=== PATIENT | female | born 1960 | race Caucasian/White ===

== ENCOUNTER 2016-09-08 06:54 | Day surgery (SDC) | payer BC ==
[2016-09-08] MEDS ORDERED: DIPHENHYDRAMINE 25 MG in SODIUM CHLORIDE 50 ML IVPB ONE (08:00)
[2016-09-08] MEDS ORDERED: ACETAMINOPHEN 325 MG TABLET (FP) PO ONE (08:00)
[2016-09-08] MEDS ORDERED: SODIUM CHLORIDE 250 ML IV ONE (08:00)
[2016-09-08] MEDS ORDERED: RITUXIMAB IVPB ONE (08:45)
[2016-09-08] MEDS ORDERED: SODIUM CHLORIDE IVPB ONE (08:45)
[2016-09-08 09:03] LABS: BASOPHIL 1.2 % (0-2.0); EOSINOPHIL 4.6 % (0-4.5); MCH 29.5 pg (25.7-33.7); MCHC 33.4 g/dl (32.0-36.0); MEAN CELL VOLUME 88.2 fl (80-96); MEAN PLT VOLUME 9.9 fl (7.5-11.1); NEUTROPHILS 61.4 % (42.8-82.8); PLATELET COUNT 163 K/MM3 (134-434); RDW 13.4 % (11.6-15.6); WHITE BLOOD COUNT 3.9 K/mm3 (4.0-10.0)
[2016-09-08 12:07] VITALS: TEMP 97.5
[2016-09-08 16:10] VITALS: BP 119/86; PULSE 62
== END 2016-09-08 15:35 | disposition home or self-care (01) ==
LOC: JONCCHEMO 06:54 → J7W 10:43 → JONCCHEMO 15:35
PROVIDERS: ATTEND Internal Medicine Hematology & Oncology
DX: Z51.11 Encounter for antineoplastic chemotherapy (principal); C85.90 Non-Hodgkin lymphoma, unspecified, unspecified site
CPT/HCPCS: 36415; 85025; 96361; 96367; 96413; 96415; J9310

== ENCOUNTER 2016-11-10 07:20 | Day surgery (SDC) | payer BC ==
[2016-11-10 09:06] LABS: BASOPHIL 0.8 % (0-2.0); EOSINOPHIL 5.9 % (0-4.5); MCH 29.8 pg (25.7-33.7); MCHC 33.6 g/dl (32.0-36.0); MEAN CELL VOLUME 88.8 fl (80-96); MEAN PLT VOLUME 9.5 fl (7.5-11.1); PLATELET COUNT 151 K/MM3 (134-434); RDW 13.6 % (11.6-15.6)
[2016-11-10 09:37] LABS: ALBUMIN 3.5 g/dl (3.4-5.0); ALK PHOS 90 U/L (45-117); ANION GAP 7 (8-16); BILIRUBIN,TOTAL 0.3 mg/dL (0.2-1.0); CALCIUM 8.6 mg/dL (8.5-10.1); CO2 27 mmol/L (21-32); CREATININE 0.5 mg/dL (0.55-1.02); GLUCOSE,RANDOM 94 mg/dL (74-106); LDH 214 U/L (84-246); SGOT/AST 24 U/L (15-37); SGPT/ALT 28 U/L (12-78); TOT PROT 6.3 g/dl (6.4-8.2)
[2016-11-10] MEDS ORDERED: SODIUM CHLORIDE 250 ML IV ONE (10:00)
[2016-11-10] MEDS ORDERED: ACETAMINOPHEN 325 MG TABLET (FP) PO ONE (10:00)
[2016-11-10] MEDS ORDERED: DIPHENHYDRAMINE 25 MG in SODIUM CHLORIDE 50 ML IVPB ONE (10:00)
[2016-11-10] MEDS ORDERED: RITUXIMAB IVPB ONE (10:45)
[2016-11-10] MEDS ORDERED: SODIUM CHLORIDE IVPB ONE (10:45)
[2016-11-10 10:50] LABS: URIC ACID 3.6 mg/dL (2.6-7.2)
[2016-11-10 15:50] VITALS: BP 131/76; PULSE 58; TEMP 98.4
== END 2016-11-10 14:15 | disposition home or self-care (01) ==
LOC: JONCCHEMO 07:20 → J7W 09:41 → JONCCHEMO 14:15
PROVIDERS: ATTEND Internal Medicine Hematology & Oncology
PROC: 3E03305 Introduction of Other Antineoplastic into Peripheral Vein, Percutaneous Approach (ICD-10-PCS; principal; 2016-11-10)
PROC: 3E033GC Introduction of Other Therapeutic Substance into Peripheral Vein, Percutaneous Approach (ICD-10-PCS; 2016-11-10)
PROC: 3E0337Z Introduction of Electrolytic and Water Balance Substance into Peripheral Vein, Percutaneous Approach (ICD-10-PCS; 2016-11-10)
DX: Z51.11 Encounter for antineoplastic chemotherapy (principal); C85.99 Non-Hodgkin lymphoma, unspecified, extranodal and solid organ sites
CPT/HCPCS: 96361; 96375; 96413; 96415; J9310; 36415; 80053; 82784; 83615; 84550; 85025; 96360; 96367

== ENCOUNTER 2017-01-05 07:28 | Day surgery (SDC) | payer BC ==
[2017-01-05] MEDS ORDERED: SODIUM CHLORIDE 250 ML IV ONE (08:00)
[2017-01-05] MEDS ORDERED: ACETAMINOPHEN 325 MG TABLET (FP) PO ONE (08:30)
[2017-01-05] MEDS ORDERED: DIPHENHYDRAMINE 25 MG in SODIUM CHLORIDE 50 ML IVPB ONE (08:30)
[2017-01-05] MEDS ORDERED: SODIUM CHLORIDE IVPB ONE (09:00)
[2017-01-05] MEDS ORDERED: RITUXIMAB IVPB ONE (09:00)
[2017-01-05 09:08] LABS: EOSINOPHIL 3.8 % (0-4.5); MCHC 33.7 g/dl (32.0-36.0); MEAN PLT VOLUME 10.2 fl (7.5-11.1); NEUTROPHILS 63.7 % (42.8-82.8); PLATELET COUNT 159 K/MM3 (134-434); RDW 12.9 % (11.6-15.6); WHITE BLOOD COUNT 3.8 K/mm3 (4.0-10.0)
[2017-01-05 09:36] LABS: ALBUMIN 3.8 g/dl (3.4-5.0); ALK PHOS 104 U/L (45-117); ANION GAP 4 (8-16); BILIRUBIN,TOTAL 0.2 mg/dL (0.2-1.0); CALCIUM 8.7 mg/dL (8.5-10.1); CO2 29 mmol/L (21-32); CREATININE 0.5 mg/dL (0.55-1.02); GLUCOSE,RANDOM 92 mg/dL (74-106); MAGNESIUM 2.3 mg/dL (1.8-2.4); SGOT/AST 15 U/L (15-37); SGPT/ALT 26 U/L (12-78); TOT PROT 6.8 g/dl (6.4-8.2)
[2017-01-05 09:41] LABS: BILIRUBIN,DIRECT < 0.1 mg/dL (0.0-0.2)
[2017-01-05 16:40] VITALS: BP 114/62; PULSE 54; TEMP 97.9
== END 2017-01-05 14:30 | disposition home or self-care (01) ==
LOC: JONCCHEMO 07:28 → J7W 09:50 → JONCCHEMO 14:30
PROVIDERS: ATTEND Internal Medicine Hematology & Oncology
DX: Z51.11 Encounter for antineoplastic chemotherapy (principal); C85.99 Non-Hodgkin lymphoma, unspecified, extranodal and solid organ sites
CPT/HCPCS: 36415; 80053; 80076; 83735; 85025; 96361; 96375; 96413; 96415; J9310

== ENCOUNTER 2017-03-02 07:19 | Day surgery (SDC) | payer BC ==
[2017-03-02] MEDS ORDERED: SODIUM CHLORIDE 250 ML IV ONE (08:00)
[2017-03-02] MEDS ORDERED: DIPHENHYDRAMINE 25 MG in SODIUM CHLORIDE 50 ML IVPB ONE (08:30)
[2017-03-02] MEDS ORDERED: ACETAMINOPHEN 325 MG TABLET (FP) PO ONE (08:30)
[2017-03-02] MEDS ORDERED: RITUXIMAB IVPB ONE (09:00)
[2017-03-02] MEDS ORDERED: SODIUM CHLORIDE IVPB ONE (09:00)
[2017-03-02 09:09] LABS: BASOPHIL 0.6 % (0-2.0); EOSINOPHIL 3.8 % (0-4.5); MCH 30.3 pg (25.7-33.7); MCHC 33.5 g/dl (32.0-36.0); MEAN CELL VOLUME 90.3 fl (80-96); MEAN PLT VOLUME 9.3 fl (7.5-11.1); NEUTROPHILS 58.6 % (42.8-82.8); PLATELET COUNT 178 K/MM3 (134-434); RDW 12.2 % (11.6-15.6); WHITE BLOOD COUNT 3.2 K/mm3 (4.0-10.0)
[2017-03-02 09:54] LABS: ALBUMIN 3.6 g/dl (3.4-5.0); ANION GAP 5 (8-16); BILIRUBIN,DIRECT < 0.1 mg/dL (0.0-0.2); CALCIUM 9.1 mg/dL (8.5-10.1); CO2 29 mmol/L (21-32); CREATININE 0.5 mg/dL (0.55-1.02); GLUCOSE,RANDOM 93 mg/dL (74-106); LDH 211 U/L (84-246); MAGNESIUM 2.1 mg/dL (1.8-2.4); SGOT/AST 13 U/L (15-37); SGPT/ALT 23 U/L (12-78); TOT PROT 6.4 g/dl (6.4-8.2); URIC ACID 3.7 mg/dL (2.6-7.2)
[2017-03-02 09:55] LABS: ALK PHOS 101 U/L (45-117); BILIRUBIN,TOTAL 0.3 mg/dL (0.2-1.0)
[2017-03-02 15:29] VITALS: BP 133/92; PULSE 80; TEMP 97.9
[2017-03-03 08:08] LABS: IGG IMMUNOGLOBULIN 776 mg/dL (700-1600)
[2017-03-04 00:10] LABS: HBeAG Negative (Negative); HEP B SURFACE AB Reactive (.); HEP BE AB Negative (Negative)
== END 2017-03-02 14:35 | disposition home or self-care (01) ==
LOC: JONCCHEMO 07:19 → J7W 09:41 → JONCCHEMO 14:35
PROVIDERS: ATTEND Internal Medicine Hematology & Oncology
DX: Z51.11 Encounter for antineoplastic chemotherapy (principal); C85.99 Non-Hodgkin lymphoma, unspecified, extranodal and solid organ sites
CPT/HCPCS: 36415; 80053; 80076; 82232; 82784; 83615; 83735; 84550; 85025; 85651; 86704; 86705; 86706; 86707; 87340; 87350; 87517; 96361; 96375; 96413; 96415; J9310

== ENCOUNTER 2017-05-04 07:25 | Day surgery (SDC) | payer BC ==
[2017-05-04] MEDS ORDERED: SODIUM CHLORIDE 250 ML IV ONE (08:00)
[2017-05-04] MEDS ORDERED: DIPHENHYDRAMINE 25 MG in SODIUM CHLORIDE 50 ML IVPB ONE (08:30)
[2017-05-04] MEDS ORDERED: ACETAMINOPHEN 325 MG TABLET (FP) PO ONE (08:30)
[2017-05-04] MEDS ORDERED: RITUXIMAB IVPB ONE (09:00)
[2017-05-04] MEDS ORDERED: SODIUM CHLORIDE IVPB ONE (09:00)
[2017-05-04 10:32] LABS: BASOPHIL 0.9 % (0-2.0); MCH 30.5 pg (25.7-33.7); MCHC 33.8 g/dl (32.0-36.0); MEAN CELL VOLUME 90.3 fl (80-96); MEAN PLT VOLUME 9.5 fl (7.5-11.1); NEUTROPHILS 60.3 % (42.8-82.8); PLATELET COUNT 188 K/MM3 (134-434); RDW 12.8 % (11.6-15.6); WHITE BLOOD COUNT 3.9 K/mm3 (4.0-10.0)
[2017-05-04 11:03] LABS: ALBUMIN 3.8 g/dl (3.4-5.0); ALK PHOS 132 U/L (45-117); ANION GAP 5 (8-16); BILIRUBIN,DIRECT < 0.2 mg/dL (0.0-0.2); BILIRUBIN,TOTAL 0.2 mg/dL (0.2-1.0); CALCIUM 8.6 mg/dL (8.5-10.1); CO2 28 mmol/L (21-32); CREATININE 0.5 mg/dL (0.55-1.02); GLUCOSE,RANDOM 90 mg/dL (74-106); MAGNESIUM 2.2 mg/dL (1.8-2.4); SGOT/AST 15 U/L (15-37); SGPT/ALT 26 U/L (12-78); TOT PROT 6.8 g/dl (6.4-8.2)
[2017-05-04 16:22] VITALS: BP 131/87; PULSE 55; TEMP 98.2
== END 2017-05-04 16:30 | disposition home or self-care (01) ==
LOC: JONCCHEMO 07:25 → J7W 11:00 → JONCCHEMO 16:30
PROVIDERS: ATTEND Internal Medicine Hematology & Oncology
DX: Z51.11 Encounter for antineoplastic chemotherapy (principal); C85.99 Non-Hodgkin lymphoma, unspecified, extranodal and solid organ sites
CPT/HCPCS: 36415; 80053; 80076; 83735; 85025; 96367; 96375; 96413; 96415; J9310

== ENCOUNTER 2017-10-05 07:44 | Day surgery (SDC) | payer BC ==
[2017-10-05] MEDS ORDERED: SODIUM CHLORIDE 250 ML IV ONE (10:00)
[2017-10-05 10:01] LABS: BASO % 0.7 % (0-2.0); EOS % 2.1 % (0-4.5); HEMATOCRIT 36.4 % (32.4-45.2); HEMOGLOBIN 12.4 GM/dL (10.7-15.3); LYMPH % 19.1 % (8-40); MCH 30.8 pg (25.7-33.7); MCHC 34.1 g/dl (32.0-36.0); MEAN CELL VOLUME 90.3 fl (80-96); MEAN PLT VOLUME 9.5 fl (7.5-11.1); MONO % 9.3 % (3.8-10.2); NEUT % 68.8 % (42.8-82.8); PLATELET COUNT 175 K/MM3 (134-434); RBC 4.04 M/mm3 (3.60-5.2); WHITE BLOOD COUNT 3.5 K/mm3 (4.0-10.0)
[2017-10-05] MEDS ORDERED: ZOLEDRONIC ACID/MAN/WATER 5 MG/100 ML INFUS..BTL IVPB ONE (10:30)
[2017-10-05 10:51] LABS: ALBUMIN 3.8 g/dl (3.4-5.0); ALK PHOS 92 U/L (45-117); ANION GAP 4 (8-16); BILIRUBIN,DIRECT < 0.2 mg/dL (0.0-0.2); BILIRUBIN,TOTAL 0.4 mg/dL (0.2-1.0); BLOOD UREA NITROGEN 9 mg/dL (7-18); CALCIUM 8.6 mg/dL (8.5-10.1); CHLORIDE 110 mmol/L (98-107); CO2 29 mmol/L (21-32); CREATININE 0.5 mg/dL (0.55-1.02); GLUCOSE,RANDOM 88 mg/dL (74-106); LDH 225 U/L (84-246); MAGNESIUM 2.4 mg/dL (1.8-2.4); SGOT/AST 14 U/L (15-37); SGPT/ALT 19 U/L (12-78); SODIUM 143 mmol/L (136-145); TOT PROT 6.8 g/dl (6.4-8.2)
[2017-10-05 17:10] VITALS: BP 132/75; PULSE 58; TEMP 98.2
== END 2017-10-05 13:15 | disposition home or self-care (01) ==
LOC: JONCCHEMO 07:44 → J7W 10:50 → JONCCHEMO 13:15
PROVIDERS: ATTEND Internal Medicine Hematology & Oncology
DX: M81.0 Age-related osteoporosis without current pathological fracture (principal)
CPT/HCPCS: 36415; 72100-TC-FY; 80053; 80076; 82784; 82977; 83615; 83735; 85025; 85651; 86704; 86705; 87522; 96365; 96413; J3489

== ENCOUNTER 2018-10-03 07:12 | Day surgery (SDC) | payer BC ==
[2018-10-03] MEDS ORDERED: SODIUM CHLORIDE 250 ML IV ONE (09:00)
[2018-10-03] MEDS ORDERED: ZOLEDRONIC ACID/MAN/WATER 5 MG/100 ML INFUS..BTL IVPB ONE (09:30)
[2018-10-03 11:01] VITALS: BP 152/90; TEMP 98.2
[2018-10-03 11:02] VITALS: PULSE 57
== END 2018-10-03 11:30 | disposition home or self-care (01) ==
LOC: JONCCHEMO 07:12 → J7W 09:00 → JONCCHEMO 11:30
PROVIDERS: ATTEND Internal Medicine Hematology & Oncology
PROC: 3E033GC Introduction of Other Therapeutic Substance into Peripheral Vein, Percutaneous Approach (ICD-10-PCS; principal; 2018-10-03)
DX: M81.0 Age-related osteoporosis without current pathological fracture (principal)
CPT/HCPCS: 96365; 96417; J3489

== ENCOUNTER 2019-01-11 04:49 | Day surgery (SDC) | payer BC ==
[2019-01-08 11:28] VITALS: BMI 28.0
[2019-01-11] MEDS ORDERED: ceFAZolin SODIUM 1 GM VIAL ONE (09:13)
[2019-01-11] MEDS ORDERED: LIDOCAINE HCL/PF 2% SDV 5ML VIAL ONE (09:13)
[2019-01-11] MEDS ORDERED: MIDAZOLAM HCL 2 MG/2 ML SINGLE DOSE VIAL ONE (09:14)
[2019-01-11] MEDS ORDERED: PROPOFOL 20 ML ONE ×2 (09:14)
[2019-01-11] MEDS ORDERED: LIDOCAINE 1%-EPI 1:100,000 30 ML MDV IJ ONE (09:35)
[2019-01-11] MEDS ORDERED: ceFAZolin SODIUM 1 GM VIAL IVPB ONE (09:42)
[2019-01-11] MEDS ORDERED: DEXAMETHASONE SOD PHOSPHATE 4 MG/1 ML VIAL ONE (09:57)
[2019-01-11] MEDS ORDERED: LIDOCAINE 1%/EPI 1:100000 (20 ML MULTI DOSE VIAL) IJ ONE (10:03)
[2019-01-11] MEDS ORDERED: BUPIVACAINE HCL/PF 0.5% (5 MG/ML) 30 ML VIAL IJ ONE (10:03)
[2019-01-11] MEDS ORDERED: MICROFIBRILLAR COLLAGEN 1 GM EACH ONE (10:18)
[2019-01-11] MEDS ORDERED: MICROFIBRILLAR COLLAGEN 1 GM EACH TP ONE (10:24)
[2019-01-11] MEDS ORDERED: ONDANSETRON 4 MG/2 ML VIAL IVPUSH PRN (10:42)
[2019-01-11] MEDS ORDERED: oxyCODONE HCL 5 MG TABLET PO PRN (10:42)
[2019-01-11] MEDS ORDERED: IBUPROFEN 800 MG/8 ML IJ IVPB PRN (10:42)
[2019-01-11] MEDS ORDERED: LACTATED RINGERS SOLUTION 1,000 ML IV SCH ×2 (10:45→11:00)
[2019-01-11] MEDS ORDERED: ONDANSETRON 4 MG/2 ML VIAL ONE (10:59)
--- NOTE | 2019-01-11 12:52 | OP ---
DATE OF OPERATION: 01/11/2019 SURGICAL ATTENDING: Evan Monte MD PREOPERATIVE DIAGNOSIS: Lymphoma. POSTOPERATIVE DIAGNOSIS: Lymphoma. ANESTHESIA: General, LMA. PROCEDURE: 1. Left cervical lymph node biopsy. 2. Neck ultrasound. 3. Left cervical scar excision. DESCRIPTION OF PROCEDURE: The patient was taken into the operating room, placed in a supine position. General anesthesia was induced. Shoulder roll was placed. The arms were tucked. All pressure points were checked and protected. Neck ultrasound was performed showing a large left supraclavicular neck mass with scattered lymphadenopathy adjacent. The neck was then prepped and draped in the usual sterile fashion. Local anesthesia was injected and the previous left cervical scar was excised and sent to Pathology. The incision was carried down through the platysma and subplatysmal flaps were raised superiorly and inferiorly. The sternocleidomastoid muscle was dissected and the space between the anterior and posterior bellies was opened. The mass was readily identified, uncovered and an incisional biopsy was taken. This was sent to Pathology fresh for lymphoma studies. Hemostasis was achieved with electrocautery. Avitene was placed. The wound was then closed in 3 layers. Dermabond was placed. The patient was then awakened, extubated and taken to recovery in stable condition. Dr. Monte, the attending surgeon, was present throughout the entire procedure. EVAN MONTE M.D. [id number]
[2019-01-11 16:15] VITALS: BP 140/80; PULSE 57; TEMP 98.1
--- NOTE | 2019-01-16 16:52 | PATH ---
Surgical Pathology Report Patient Name: THAI MCKINNEY [facility]. Rec. #: [id number] /Age/Gender: 1960 (Age: 58) / F Account: [id number] Location: [facility] SURGICAL Taken: 01/11/2019 Received: 01/11/2019 Reported: 01/16/2019 Physicians: Danny Swenson M.D. Jn Rod M.D. Specimen(s) Received A: LEFT CERVICAL SCAR B: LEFT CERVICAL LYMPH NODE BIOPSY (FRESH) Clinical History Left thyroid nodule Final Diagnosis A. LEFT CERVICAL SCAR, EXCISION: PORTION OF SKIN WITH SCAR. B. LEFT CERVICAL LYMPH NODE BIOPSY (FRESH): The specimen was sent to [place], [place] for hematopathology consultation. Surgical Pathology Report performed and interpreted at [place], [place] ([id number]) shows the following: FINAL DIAGNOSIS: LEFT CERVICAL LYMPH NODE, EXCISIONAL BIOPSY ([id number]) FOLLICULAR LYMPHOMA, FOLLICULAR PATTERN, HIGH GRADE (GRADE 3B). Microscopic Description: The specimen consists of fragments of lymph node with nodular/follicular proliferation of polymorphous lymphocytes; medium-sized to large neoplastic lymphoid cells with nuclear irregularities, vesicular chromatin and small nucleoli predominate. Numerous mitotic figures are easily identifiable. Immunostains demonstrate B-cell origin with co-expression of CD20, PAX-5, CD10, BCL-6, and HGAL; BCL-2 is dimly focally positive.The proliferative rate is 30-40% overall. Immunostains performed: CD20...B-cells positive PAX-5..B-cells positive CD10..Positive CD3..T-cells positive BCL-2...T-cells positive; B-cells dimly focally positive HGAL...Positive BCL-1..Negative BCL-6...Positive CRISTINA..Negative AE1/AE3..Negative CD23..Follicular dendritic cells positive Ki67..Subset (30-40%) positive See [facility] report ([id number]) for additional details. LYMPHOPROLIFERATIVE FLOW PANEL performed and interpreted at [place], [place] ([id number]) shows the following: INTERPRETATION: CLONAL CD10+ B-CELL POPULATION, 69% OF TOTAL EVENTS, IS DETECTED. 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 Correlation with complete morphologic/immunohistochemical assessment of the sample is essential. See [facility] report ([id number]) for additional details. This case was discussed with Dr. Manzanares, on January 16, 2019. Electronically Signed Julius Vincent M.D. Gross Description A. Received in formalin labeled "left cervical scar" is an ellipse of rodriguez skin which measures 5 x 0.5, excised to a depth of 0.5 cm. The surface shows linear scar traversing the specimen. Jazz Singer sections are submitted in one cassette. B. Received fresh labeled "left cervical lymph node" are multiple irregular fragments of pink rodriguez nodular soft tissue measuring 2 x 1.5 x 0.5 cm in aggregate. A portion of the specimen is saved in RPMI and sent for flow cytometry analysis. The rest of the specimen entirely submitted in one cassette. MLSZ/01/11/2019 sancherise01/11/2019
== END 2019-01-11 14:35 | disposition home or self-care (01) ==
LOC: JASU-SURG 04:49
PROVIDERS: ATTEND Surgery
PROC: 07B20ZX Excision of Left Neck Lymphatic, Open Approach, Diagnostic (ICD-10-PCS; principal; 2019-01-11 09:00)
DX: C82.41 Follicular lymphoma grade IIIb, lymph nodes of head, face, and neck (principal)
CPT/HCPCS: 88304-TC; 88305-TC; 94760

== ENCOUNTER 2019-02-15 05:18 | Day surgery (SDC) | payer BC ==
[2019-02-14 09:23] VITALS: BMI 26.2
[2019-02-15] MEDS ORDERED: LIDOCAINE HCL 1%, 10 MG/ML (20ML VIAL) ONE (07:21)
[2019-02-15] MEDS ORDERED: MIDAZOLAM HCL 2 MG/2 ML SINGLE DOSE VIAL ONE (07:34)
[2019-02-15] MEDS ORDERED: LIDOCAINE 1%-EPI 1:100,000 30 ML MDV IJ ONE ×2 (07:36→08:30)
[2019-02-15] MEDS ORDERED: BUPIVACAINE HCL/PF 0.5% (5 MG/ML) 30 ML VIAL IJ ONE ×4 (07:36→08:31)
[2019-02-15] MEDS ORDERED: PROPOFOL 20 ML ONE ×4 (07:50→09:26)
[2019-02-15] MEDS ORDERED: ceFAZolin SODIUM 1 GM VIAL IVPB ONE (08:00)
[2019-02-15] MEDS ORDERED: LIDOCAINE 1%/EPI 1:100000 (20 ML MULTI DOSE VIAL) IJ ONE ×2 (08:05)
[2019-02-15] MEDS ORDERED: ceFAZolin SODIUM 1 GM VIAL ONE (08:12)
[2019-02-15] MEDS ORDERED: DEXAMETHASONE SOD PHOSPHATE 4 MG/1 ML VIAL ONE (08:12)
[2019-02-15] MEDS ORDERED: KETOROLAC TROMETHAMINE 30 MG/1 ML VIAL ONE (08:12)
[2019-02-15] MEDS ORDERED: ONDANSETRON 4 MG/2 ML VIAL ONE (08:12)
[2019-02-15] MEDS ORDERED: GLYCOPYRROLATE 0.2 MG/1 ML VIAL ONE (08:42)
[2019-02-15] MEDS ORDERED: HEPARIN NA (PORCINE) 5,000 UNITS/ML 1ML VIAL ONE (09:18)
--- NOTE | 2019-02-15 12:44 | OP ---
DATE OF OPERATION: 02/15/2019 SURGICAL ATTENDING: Danny Swenson MD SECOND SURGICAL ATTENDING: Dileep Aquino DO PREOPERATIVE DIAGNOSIS: Lymphoma. POSTOPERATIVE DIAGNOSIS: Lymphoma. ANESTHESIA: Local with sedation. PROCEDURE: Port-A-Cath placement with fluoroscopic and ultrasound guidance. DESCRIPTION OF PROCEDURE: Patient was taken into the operating room, placed in a supine position, prepped and draped in the usual sterile fashion. The ultrasound probe was draped as well as the fluoroscope. Ultrasound was performed of the right neck, and the right internal jugular vein was identified and seen to be large. A needle stick was performed, and good blood flow was returned. The Port-A-Cath wire was then placed through the needle but would not pass distally. A 2nd stick was made in the posterior approach, and again, the wire would not pass. Ultrasound was then performed of the right subclavian vein, and a right subclavian stick was performed, and the wire was again not able to be passed. The needle and wires were removed. The drapes were taken down, and the left side of the neck was then prepped and draped in the usual sterile fashion. The left internal jugular vein was identified with ultrasound. A guided needlestick was performed, but again, the wire would not pass. At this point, Dr. Dileep Aquino was consulted and joined in the operating room where he performed a micropuncture of the left internal jugular vein and was able to pass a microwire through the vein into the right side of the chest. The wire took an unusual course presumably from mediastinal adenopathy. A venogram was then performed showing good placement of the catheter, which was passed over the microwire. The wire was then changed to the Port-A-Cath wire. The catheter was removed. A sheath and dilator were then placed over the wire and were passed about 1/2 the length of the dilator; however, the dilator would not negotiate the turn to the right side, and therefore, was left in that place. The entire dilator insertion and manipulation were performed under live fluoroscopic guidance. The right chest was then incised, and a tunnel was made inferiorly. The Port-A-Cath was then tunneled from the chest incision to the neck where a small incision was made next to the wire. The Port-A-Cath was threaded through. It was cut to length, attached to the double port, which was then inserted into the pocket. Both sides were flushed with heparinized saline. The port was then placed through the sheath after the dilator was removed. Fluoroscopy showed good position in the distal left internal jugular vein. The bilateral port was flushed; however, no good blood flow was returned. It was deemed that the placement of this Port-A-Cath was suboptimal; however, it was the best possible outcome given the severe adenopathy and constriction of the vessels. Therefore, the procedure was terminated with the port in this position. The chest wound and the neck wounds were then closed with Vicryl and Monocryl sutures. Sterile dressings were placed. Patient was then awakened, weakness to recovery in stable condition. Local anesthesia was used throughout. A chest x-ray was performed in the recovery room. Dr. Swenson, the attending surgeon, was present throughout the entire procedure, and Dr. Aquino was present for his consultation. Norbert [id number]
[2019-02-15 15:26] VITALS: BP 129/71; PULSE 60; TEMP 98
== END 2019-02-15 15:15 | disposition home or self-care (01) ==
LOC: JASU-SURG 05:18
PROVIDERS: ATTEND Surgery
PROC: 0JH63WZ Insertion of Totally Implantable Vascular Access Device into Chest Subcutaneous Tissue and Fascia, Percutaneous Approach (ICD-10-PCS; principal; 2019-02-15 07:30)
DX: C82.80 Other types of follicular lymphoma, unspecified site (principal)
CPT/HCPCS: 36561; C1788; 71045-TC-FY; 76000-TC-FY; 94760; J1644

== ENCOUNTER 2019-02-27 09:24 | Day surgery (SDC) | payer BC ==
[2019-02-26 15:17] VITALS: BMI 26.2
[2019-02-27 10:21] VITALS: TEMP 98.5
[2019-02-27 15:25] VITALS: BP 135/75; PULSE 59
--- NOTE | 2019-03-11 10:22 | PATH ---
Surgical Pathology Report Patient Name: THAI MCKINNEY Med. Rec. #: [id number] /Age/Gender: 1960 (Age: 58) / F Account: [id number] Location: RADIOLOGY INTER Taken: 02/27/2019 Received: 02/27/2019 Reported: 03/11/2019 Physicians: Jn Rod M.D. Specimen(s) Received A: BONE MARROW BIOPSY B: BONE MARROW CLOT C: BONE MARROW ASPIRATION SMEARS D: BONE MARROW BLOOD Clinical History Lymphoma Final Diagnosis A-D. BONE MARROW, BLOOD, ASPIRATION SMEARS, CLOT AND CORE BIOPSY: NORMOCELLULAR MARROW WITH MATURING TRILINEAGE HEMATOPOIESIS. NO EVIDENCE OF LYMPHOMA. NORMAL FEMALE CHROMOSOME COMPLEMENT. SEE COMMENT. Comment: This case [facility] [place] [place] ([id number]) the diagnosis above reflects his opinion. Bone marrow differential Cell type Result (%) Reference range (%) Cell type Result (%) Reference range (%) BLASTS 0.00 0-3 Promyelocytes 2.00 2-8 MYELOCYTES 9.00 10-13 Metamyelocytes 6.00 10-15 NEUTROPHILS/BANDS 20.00 25-40 Monocytes 2.00 0-1 EOSINOPHILS 2.00 1-3 Basophils 0.00 0-1 LYMPHOCYTES 5.00 10-15 Plasma cells 3.00 0-1 ERYTHROID SERIES 49.00 15-25 Pronormoblasts 2.00 0-2 M:E RATIO 0.8:1 Aspirate Microscopic Result Extrinsic Cells None seen Cellularity Cellular with adequate spicules and maturing trilineage hematopoiesis. Erythroid Precursors Mild megaloblastic change Myeloid Precursors Granulocytic series shows complete maturation to segmented neutrophils without left shift or dysplasia. Blasts are not increased. There is no significant monocytosis, eosinophilia, or basophilia. Megakaryocytes Adequate without significant cytologic atypia. Lymphoid Cells No significant lymphocytosis; no overt cytologic abnormalities. Plasma Cells No significant plasmacytosis. Iron Stain Normal storage iron [mild]. Decreased sideroblastic iron. Increased ringed sideroblasts are not observed. Bone marrow biopsy Microscopic Result The core biopsy shows aspiration artifact with limited cellular marrow and a normocellular marrow for patient's age (40-50%) with maturing trilineage hematopoiesis. The M:E ratio is within the normal limit. Granulocytic series shows complete maturation to segmented neutrophils. There is no increase in mononuclear blast-like cells, accentuated paratrabecular immaturity, or abnormally localized immature precursors noted. Megakaryocytes are adequate in number and do not exhibit cytologic atypia. No significant lymphoid or plasma cell infiltrate is noted. There is no evidence of metastatic neoplasm. Iron Stain No definitive stainable iron is noted, however, this could be due to specimen processing including decalcification artifact. Reticulin Stain No significant increase in reticulin fibers. Biopsy Clot Microscopic Result Clot sample contains adequate amount of cellular marrow and reflects core biopsy findings. A small lymphoid aggregate composed of small lymphocytes is observed. Immunostains show mostly T cells, consistent with a reactive process. Rare plasma cells present are polyclonal. Immunohistochemistry Marker Result CD20 B-cells Positive CD3 T-cells Positive CD5(4C7) T-cells Positive CYCLIN D1 Negative CD10 Leukocytes Positive KAPPA IHC Plasma Cells Positive LAMBDA IHC Plasma Cells Positive FLOW CYTOMETRY ANALYSIS performed and [place] (Specimen #: [id number]) shows the following: INTERPRETATION: In the sample analyzed, there is no evidence of a B-cell or T-cell lymphoma. Phenotype: There is a mixed population of maturing myeloid cells, B cells and T cells. No abnormal myeloid maturation is seen. CD14+ monocytes are 3% of total cells. There is no increase in CD34 positive blasts, and they comprise < 1% of the total cells. The B-cells (<1% of total) are polytypic and the T-cells (9% of total) show no santillan T-cell antigen deletion. Based on few bright CD38+ cells, plasma cells are rare. CYTOGENETICS performed and interpreted at [facility] (Specimen #: [id number]) shows the following: RESULTS: 46,XX[20] Female Karyotype INTERPRETATION: Normal female chromosome complement observed in all cells examined. There was no evidence of a chromosome abnormality with in the limites of the technology utilized. See [facility] (Specimen #: [id number]) for additional details. Electronically Signed Sandra Hernandez M.D. Gross Description A. Received in formalin labeled "bone marrow biopsy" is an irregular fragment of bone measuring 0.5 x 0.3 admixed with blood clot measuring 0.3 x 0.2 cm. The specimen is submitted after decalcification in one cassette B. Received in formalin labeled "bone marrow clot" is an aggregate of red-brown blood clot measuring 3 x 2.5 x 0.5 cm. Entire specimen is submitted after decalcification in one cassette. C. Received are 4 air dried aspirate smears for special stains. D. Received labelled with the patient's name are two green tubes of peripheral blood which are forwarded to [facility] for ancillary testing. sanml/02/27/2019
== END 2019-02-27 16:35 | disposition home or self-care (01) ==
LOC: JRADIR 09:24
PROVIDERS: ATTEND Internal Medicine Hematology & Oncology
PROC: 0QB23ZX Excision of Right Pelvic Bone, Percutaneous Approach, Diagnostic (ICD-10-PCS; principal; 2019-02-27)
PROC: BR2CZZZ Computerized Tomography (CT Scan) of Pelvis (ICD-10-PCS; 2019-02-27)
DX: C85.90 Non-Hodgkin lymphoma, unspecified, unspecified site (principal)
CPT/HCPCS: 20225; 77012-TC; 88300-TC; 88305-TC; 88311-TC; 88313-TC

== ENCOUNTER → 2019-04-09 | Day surgery (SDC) | payer BC ==
[~2019-04-09] MED LIST: ACETAMINOPHEN 325 MG TABLET (FP) PO ONE; CYCLOPHOSPHAMIDE IVPB ONE; DEXAMETHASONE SODIUM PHOSPHATE 10 MG in SODIUM CHLORIDE 50 ML IVPB ONE; DOXORUBICIN HCL IV ONE; FOSAPREPITANT DIMEGLUMINE 150 MG in SODIUM CHLORIDE 150 ML IVPB ONE; PALONOSETRON HCL 0.25 MG/5 ML VIAL IVPUSH ONE; RITUXIMAB IVPB ONE; SODIUM CHLORIDE IV ONE; SODIUM CHLORIDE IVPB ONE; diphenhydrAMINE HCL 25 MG CAPSULE (FP) PO ONE; vinCRIStine SULFATE 2 MG in SODIUM CHLORIDE 25 ML IVPB ONE
[2019-04-09 09:04] VITALS: BP 163/90; PULSE 64; TEMP 98
[2019-04-09 09:41] LABS: BASO % 0.8 % (0-2.0); EOS % 5.6 % (0-4.5); HEMATOCRIT 38.3 % (32.4-45.2); HEMOGLOBIN 12.7 GM/dL (10.7-15.3); LYMPH % 20.4 % (8-40); MCH 30.3 pg (25.7-33.7); MCHC 33.2 g/dl (32.0-36.0); MEAN CELL VOLUME 91.3 fl (80-96); MEAN PLT VOLUME 10.3 fl (7.5-11.1); MONO % 9.7 % (3.8-10.2); NEUT % 63.5 % (42.8-82.8); PLATELET COUNT 185 K/MM3 (134-434); RDW 12.8 % (11.6-15.6); WHITE BLOOD COUNT 3.2 K/mm3 (4.0-10.0)
[2019-04-09 10:18] LABS: ALBUMIN 3.8 g/dl (3.4-5.0); BILIRUBIN,TOTAL 0.3 mg/dL (0.2-1); BLOOD UREA NITROGEN 13.1 mg/dL (7-18); CREATININE 0.6 mg/dL (0.55-1.3); MAGNESIUM 2.2 mg/dL (1.8-2.4); POTASSIUM 4.1 mmol/L (3.5-5.1); TOT PROT 6.4 g/dl (6.4-8.2)
[2019-04-13 11:11] LABS: BETA-2-MICROGLOBULIN 1.7 mg/L (0.6-2.4)
== END | disposition home or self-care (01) ==
LOC: JONCCHEMO 07:29
PROVIDERS: ATTEND Internal Medicine Hematology & Oncology
DX: Z53.8 Procedure and treatment not carried out for other reasons (principal)
CPT/HCPCS: 36415; 80053; 82232; 82784; 83615; 83735; 84550; 85025

== ENCOUNTER 2019-04-16 05:27 | Day surgery (SDC) | payer BC ==
[2019-04-16] MEDS ORDERED: diphenhydrAMINE HCL 50 MG CAPSULE PO ONE (10:00)
[2019-04-16] MEDS ORDERED: ACETAMINOPHEN 325 MG TABLET (FP) PO ONE ×2 (10:00→14:45)
[2019-04-16] MEDS ORDERED: DEXAMETHASONE SODIUM PHOSPHATE 10 MG in SODIUM CHLORIDE 50 ML IVPB ONE (10:00)
[2019-04-16] MEDS ORDERED: FOSAPREPITANT DIMEGLUMINE 150 MG in SODIUM CHLORIDE 150 ML IVPB ONE (10:00)
[2019-04-16] MEDS ORDERED: PALONOSETRON HCL 0.25 MG/5 ML VIAL IVPUSH ONE (10:00)
[2019-04-16] MEDS ORDERED: SODIUM CHLORIDE IVPB ONE ×2 (10:30→12:00)
[2019-04-16] MEDS ORDERED: RITUXIMAB IVPB ONE (10:30)
[2019-04-16] MEDS ORDERED: CYCLOPHOSPHAMIDE IVPB ONE (12:00)
[2019-04-16] MEDS ORDERED: DOXORUBICIN HCL IV ONE (12:30)
[2019-04-16] MEDS ORDERED: SODIUM CHLORIDE IV ONE (12:30)
[2019-04-16 12:34] LABS: HEMATOCRIT 35.6 % (32.4-45.2); LYMPH % 19.2 % (8-40); MCH 30.5 pg (25.7-33.7); MCHC 33.6 g/dl (32.0-36.0); MEAN CELL VOLUME 90.8 fl (80-96); MEAN PLT VOLUME 9.9 fl (7.5-11.1); MONO % 8.7 % (3.8-10.2); NEUT % 66.1 % (42.8-82.8); PLATELET COUNT 173 K/MM3 (134-434); RBC 3.92 M/mm3 (3.60-5.2); RDW 13.1 % (11.6-15.6); WHITE BLOOD COUNT 2.8 K/mm3 (4.0-10.0)
[2019-04-16] MEDS ORDERED: vinCRIStine SULFATE 2 MG in SODIUM CHLORIDE 25 ML IVPB ONE (13:00)
[2019-04-16] MEDS ORDERED: diphenhydrAMINE HCL 25 MG CAPSULE (FP) PO ONE (14:45)
--- NOTE | 2019-04-16 16:06 | HP ---
Admitting History and Physical - Past Medical History Heme/Onc: Yes: Other (Follicular lymphoma) Infectious Disease: Yes: Other (hepatitis B core antibody positive- trying to obtain entecavir- now approved by insurance- for GI follow up) - Smoking History Smoking history: Never smoked Have you smoked in the past 12 months: No - Alcohol/Substance Use Hx Alcohol Use: Yes (wine occas) - Social History ADL: Independent History of Recent Travel: No Home Medications - Allergies Allergies/Adverse Reactions: Allergies Allergy/AdvReac Type Severity Reaction Status Date / Time No Known Allergies Allergy Verified 02/26/19 15:09 - Home Medications Home Medications: Ambulatory Orders NK [No Known Home Medication] 01/08/19 Physical Examination Labs: CBC, BMP 04/16/19 12:20 Assessment/Plan Patient seen and examined Transformed lymphoma for R-CHOP Port dye injection with position of port at brachicephalic /subclavian site Discussed with vascular who felt that positioning was acceptable for chemotherapy infusion HEENT: KASH, EOM Intact Oropharynx: No thrush, No mucositis Neck: Supple Nodes: adenopathy left cervical region Cor: RSR, No murmurs, No gallops Lungs: Clear to P&A Abd: Soft, Normal bowel sounds, No organomegaly Ext:No significant edema Skin: No rashes, Integument intact CBC, BMP 04/16/19 12:20 Current Medications Generic Name Dose Route Start Last Admin Trade Name Freq PRN Reason Stop Dose Admin Rituximab 500 mg/ Rituximab 660 mls @ 50 mls/hr 04/16/19 10:30 160 mg/ Sodium Chloride IVPB 04/16/19 23:41 ONCE ONE Impression: Transformed lymphoma Chemotherapy Neutropenia Dye study Port positioning. Cytoxna, Vincristine today Rituxin, adriamycin, ECHO tomorrow.
[2019-04-16 17:51] VITALS: BP 155/82; PULSE 84; TEMP 97.8
[2019-04-16] MEDS ORDERED: PORTA CATH FLUSH 10 ML IVPUSH ONE (17:51)
== END 2019-04-16 16:00 | disposition home or self-care (01) ==
LOC: JRADIR 05:27 → J7W 11:16 → JRADIR 16:00
PROVIDERS: ATTEND Internal Medicine Hematology & Oncology
PROC: B517ZZA Fluoroscopy of Left Subclavian Vein, Guidance (ICD-10-PCS; principal; 2019-04-16)
PROC: 4A0 Measurement and Monitoring, Physiological Systems, Measurement (ICD-10-PCS; 2019-04-16)
DX: Z45.2 Encounter for adjustment and management of vascular access device (principal); C82.90 Follicular lymphoma, unspecified, unspecified site; B19.10 Unspecified viral hepatitis B without hepatic coma; D70.9 Neutropenia, unspecified
CPT/HCPCS: 36415; 36598; 85025; J1453; J2469; J9070; J9370

== ENCOUNTER 2019-04-17 05:48 | Day surgery (SDC) | payer BC ==
--- NOTE | 2019-04-17 10:43 | ECHO ---
Name: THAI MCKINNEY Exam:Adult Echocardiogram Study Date: 04/17/2019 09:54 AM Age: 59 yrs Reason For Study: Lymphoma Height: 63 in Weight: 150 lb BSA: 1.7 m2 MMode/2D Measurements & Calculations IVSd: 1.4 cm Ao root diam: 2.9 cm LVIDd: 3.6 cm LA dimension: 3.8 cm LVIDs: 2.3 cm ACS: 1.9 cm LVPWd: 1.1 cm EDV(Teich): 53.0 ml LVOT diam: 2.0 cm ESV(Teich): 18.2 ml Doppler Measurements & Calculations MV E max gilbert: 87.4 cm/sec Ao V2 max: 155.3 cm/sec MV A max gilbert: 80.0 cm/sec Ao max P.6 mmHg MV E/A: 1.1 Ao V2 mean: 96.4 cm/sec MV dec time: 0.23 sec Ao mean P.5 mmHg Ao V2 VTI: 34.3 cm STEPHANIE(I,D): 2.6 cm2 STEPHANIE(V,D): 2.3 cm2 LV V1 max P.2 mmHg MR max gilbert: 401.2 cm/sec LV V1 mean P.3 mmHg MR max P.4 mmHg LV V1 max: 114.5 cm/sec LV V1 mean: 69.9 cm/sec LV V1 VTI: 29.0 cm SV(LVOT): 89.7 ml TR max gilbert: 226.4 cm/sec TR max P.6 mmHg RVSP(TR): 30.6 mmHg PI end-d gilbert: 63.0 cm/sec Med Peak E' Gilbert: 7.8 cm/sec Med E/e': 11.2 Lat Peak E' Gilbert: 8.6 cm/sec Lat E/e': 10.2 RAP systole: 10.0 mmHg Procedure A two-dimensional transthoracic echocardiogram with color flow and Doppler was performed. Left Ventricle The left ventricular size, thickness and function are normal. The left ventricular ejection fraction is normal. Ejection Fraction = 65%. Left Ventricular Filling pattern is normal for age. The left ventric ular wall motion is normal. Right Ventricle The right ventricle is not well visualized. Atria Normal left and right atrial size and function. Mitral Valve There is mild mitral valve thickening. There is no mitral valve stenosis. There is mild mitral regurg itation. Tricuspid Valve There is mild tricuspid valve thickening. There is no tricuspid stenosis. There is mild to moderate t ricuspid regurgitation. Right ventricular systolic pressure is normal. Aortic Valve The aortic valve is normal in structure and function. No hemodynamically significant valvular aortic stenosis. No aortic regurgitation is present. Pulmonic Valve The pulmonic valve is not well visualized. There is no pulmonic valvular stenosis. Trace to mild pulm onic valvular regurgitation. Great Vessels The aortic root is normal size. Pericardium/Pleura There is no pericardial effusion. Interpretation Summary The left ventricular size, thickness and function are normal The left ventricular ejection fraction is normal. Ejection Fraction = 65%. The left ventricular wall motion is normal. There is mild to moderate tricuspid regurgitation. Right ventricular systolic pressure is normal. Left Ventricular Filling pattern is normal for age. There is mild mitral regurgitation. MD Te Recio 04/17/2019 10:42 AM
[2019-04-17] MEDS ORDERED: diphenhydrAMINE HCL 25 MG CAPSULE (FP) PO ONE (10:45)
[2019-04-17] MEDS ORDERED: ACETAMINOPHEN 325 MG TABLET (FP) PO ONE (10:45)
[2019-04-17] MEDS ORDERED: RITUXIMAB IVPB ONE (11:00)
[2019-04-17] MEDS ORDERED: SODIUM CHLORIDE IVPB ONE (11:00)
[2019-04-17] MEDS ORDERED: ONDANSETRON 4 MG/2 ML VIAL ONE (11:03)
[2019-04-17] MEDS ORDERED: DEXAMETHASONE SOD PHOSPHATE 10 MG/1 ML VIAL ONE (11:04)
[2019-04-17] MEDS: DEXAMETHASONE SOD PHOSPHATE 10 MG/1 ML VIAL IVPB ONE ×2 (11:09→15:32)
[2019-04-17] MEDS: ONDANSETRON 4 MG/2 ML VIAL IVPB ONE ×2 (11:09→15:32)
[2019-04-17] MEDS ORDERED: DOXORUBICIN HCL IV ONE (13:30)
[2019-04-17] MEDS ORDERED: SODIUM CHLORIDE IV ONE (13:30)
[2019-04-17 15:47] VITALS: BP 146/72; PULSE 53; TEMP 97.6
[2019-04-17] MEDS ORDERED: PORTA CATH FLUSH 10 ML IVPUSH ONE (15:47)
== END 2019-04-17 16:37 | disposition home or self-care (01) ==
LOC: JONCCHEMO 05:48 → J7W 10:24 → JONCCHEMO 16:37
PROVIDERS: ATTEND Internal Medicine Hematology & Oncology
DX: Z51.11 Encounter for antineoplastic chemotherapy (principal); C82.90 Follicular lymphoma, unspecified, unspecified site; B19.10 Unspecified viral hepatitis B without hepatic coma
CPT/HCPCS: 93306-TC; 96367; 96413; 96415; 96417; J1100; J7030; J9312

== ENCOUNTER 2019-04-18 07:14 | Day surgery (SDC) | payer BC ==
[2019-04-18] MEDS ORDERED: PEGFILGRASTIM (NEULASTA) 6 MG/0.6 ML DISP.SYRIN SQ ONE (10:00)
[2019-04-18 15:56] VITALS: BP 148/86; PULSE 61; TEMP 97.8
== END 2019-04-18 14:30 | disposition home or self-care (01) ==
LOC: JONCCHEMO 07:14 → J7W 13:53 → JONCCHEMO 14:30
PROVIDERS: ATTEND Internal Medicine Hematology & Oncology
PROC: 3E013GC Introduction of Other Therapeutic Substance into Subcutaneous Tissue, Percutaneous Approach (ICD-10-PCS; principal; 2019-04-18)
DX: Z76.89 Persons encountering health services in other specified circumstances (principal); C85.90 Non-Hodgkin lymphoma, unspecified, unspecified site
CPT/HCPCS: 96372; J2505

== ENCOUNTER 2019-05-07 05:46 | Day surgery (SDC) | payer BC ==
[2019-05-07 08:57] LABS: BASO % 1.3 % (0-2.0); EOS % 0.9 % (0-4.5); HEMATOCRIT 34.9 % (32.4-45.2); HEMOGLOBIN 11.8 GM/dL (10.7-15.3); LYMPH % 22.3 % (8-40); MCH 30.6 pg (25.7-33.7); MCHC 33.8 g/dl (32.0-36.0); MEAN CELL VOLUME 90.4 fl (80-96); MEAN PLT VOLUME 9.3 fl (7.5-11.1); MONO % 12.5 % (3.8-10.2); PLATELET COUNT 322 K/MM3 (134-434); RBC 3.87 M/mm3 (3.60-5.2); RDW 13.2 % (11.6-15.6); WHITE BLOOD COUNT 3.7 K/mm3 (4.0-10.0)
[2019-05-07 09:23] LABS: ALBUMIN 3.6 g/dl (3.4-5.0); BILIRUBIN,TOTAL 0.2 mg/dL (0.2-1); BLOOD UREA NITROGEN 15.6 mg/dL (7-18); CALCIUM 8.9 mg/dL (8.5-10.1); CREATININE 0.5 mg/dL (0.55-1.3); MAGNESIUM 2.5 mg/dL (1.8-2.4); POTASSIUM 4.4 mmol/L (3.5-5.1); TOT PROT 6.3 g/dl (6.4-8.2)
[2019-05-07] MEDS ORDERED: ACETAMINOPHEN 325 MG TABLET (FP) PO ONE (09:30)
[2019-05-07] MEDS ORDERED: PALONOSETRON HCL 0.25 MG/5 ML VIAL IVPUSH ONE (09:30)
[2019-05-07] MEDS ORDERED: diphenhydrAMINE HCL 25 MG CAPSULE (FP) PO ONE (09:30)
[2019-05-07] MEDS ORDERED: FOSAPREPITANT DIMEGLUMINE 150 MG in SODIUM CHLORIDE 145 ML IVPB ONE (09:30)
[2019-05-07] MEDS ORDERED: DEXAMETHASONE SODIUM PHOSPHATE 10 MG in SODIUM CHLORIDE 50 ML IVPB ONE (09:30)
[2019-05-07] MEDS ORDERED: RITUXIMAB IVPB ONE (10:00)
[2019-05-07] MEDS ORDERED: SODIUM CHLORIDE IVPB ONE ×2 (10:00→13:15)
[2019-05-07] MEDS ORDERED: CYCLOPHOSPHAMIDE IVPB ONE (13:15)
[2019-05-07] MEDS ORDERED: DOXORUBICIN HCL IV ONE (13:45)
[2019-05-07] MEDS ORDERED: SODIUM CHLORIDE IV ONE (13:45)
[2019-05-07] MEDS ORDERED: vinCRIStine SULFATE 2 MG in SODIUM CHLORIDE 25 ML IVPB ONE (14:15)
[2019-05-07] MEDS ORDERED: PORTA CATH FLUSH 10 ML IVPUSH ONE (15:35)
[2019-05-07 17:26] VITALS: BP 146/80; PULSE 77; TEMP 98.3
== END 2019-05-07 17:10 | disposition home or self-care (01) ==
LOC: JONCCHEMO 05:46 → J7W 10:18 → JONCCHEMO 17:10
PROVIDERS: ATTEND Internal Medicine Hematology & Oncology
DX: Z51.11 Encounter for antineoplastic chemotherapy (principal); C82.89 Other types of follicular lymphoma, extranodal and solid organ sites
CPT/HCPCS: 36415; 80053; 83735; 85025; 96366; 96367; 96375; 96411; 96413; 96415; 96417; J1453; J2469; J7030; J9070; J9312; J9370

== ENCOUNTER 2019-05-08 05:37 | Day surgery (SDC) | payer BC ==
[2019-05-08] MEDS ORDERED: PEGFILGRASTIM (NEULASTA) 6 MG/0.6 ML DISP.SYRIN SQ ONE (10:00)
[2019-05-08] MEDS ORDERED: PEGFILGRASTIM-CBQV (UDENYCA) 6 MG/0.6 ML SYRINGE SQ ONE (10:00)
[2019-05-08] MEDS ORDERED: DEXAMETHASONE INJECTION 10 MG, ONDANSETRON INJECTION 12 MG in SODIUM CHLORIDE 100 ML IVPB ONE (11:00)
[2019-05-08] MEDS ORDERED: D5-1/2NS+20 MEQ KCL - 20 MEQ/1,000 ML INFUS.BAG IV ONE (11:00)
[2019-05-08] MEDS ORDERED: PORTA CATH FLUSH 10 ML IVPUSH ONE (16:19)
[2019-05-08 16:42] VITALS: TEMP 98.4
[2019-05-08 16:43] VITALS: BP 156/72; PULSE 79
== END 2019-05-08 15:00 | disposition home or self-care (01) ==
LOC: JONCCHEMO 05:37 → J7W 10:43 → JONCCHEMO 15:00
PROVIDERS: ATTEND Internal Medicine Hematology & Oncology
PROC: 3E043GC Introduction of Other Therapeutic Substance into Central Vein, Percutaneous Approach (ICD-10-PCS; principal; 2019-05-08)
PROC: 3E043GC Introduction of Other Therapeutic Substance into Central Vein, Percutaneous Approach (ICD-10-PCS; 2019-05-08)
DX: C82.89 Other types of follicular lymphoma, extranodal and solid organ sites (principal)
CPT/HCPCS: 96361; 96365; 96372; J1100; J2405; Q5111

== ENCOUNTER 2019-05-27 07:13 | Day surgery (SDC) | payer BC ==
[2019-05-27 09:54] LABS: BASO % 0.4 % (0-2.0); EOS % 0.6 % (0-4.5); HEMATOCRIT 34.1 % (32.4-45.2); HEMOGLOBIN 11.2 GM/dL (10.7-15.3); LYMPH % 12.9 % (8-40); MCH 30.4 pg (25.7-33.7); MCHC 32.7 g/dl (32.0-36.0); MEAN CELL VOLUME 92.8 fl (80-96); MEAN PLT VOLUME 10.4 fl (7.5-11.1); MONO % 10.7 % (3.8-10.2); NEUT % 75.4 % (42.8-82.8); PLATELET COUNT 238 K/MM3 (134-434); RBC 3.67 M/mm3 (3.60-5.2); RDW 15.3 % (11.6-15.6); WHITE BLOOD COUNT 4.2 K/mm3 (4.0-10.0)
[2019-05-27] MEDS ORDERED: diphenhydrAMINE HCL 25 MG CAPSULE (FP) PO ONE (10:00)
[2019-05-27] MEDS ORDERED: FOSAPREPITANT DIMEGLUMINE 150 MG in SODIUM CHLORIDE 150 ML IVPB ONE (10:00)
[2019-05-27] MEDS ORDERED: DEXAMETHASONE SODIUM PHOSPHATE 10 MG in SODIUM CHLORIDE 50 ML IVPB ONE (10:00)
[2019-05-27] MEDS ORDERED: ACETAMINOPHEN 325 MG TABLET (FP) PO ONE (10:00)
[2019-05-27] MEDS ORDERED: PALONOSETRON HCL 0.25 MG/5 ML VIAL IVPUSH ONE (10:00)
[2019-05-27 10:25] LABS: ALBUMIN 3.5 g/dl (3.4-5.0); BILIRUBIN,TOTAL 0.2 mg/dL (0.2-1); BLOOD UREA NITROGEN 11.1 mg/dL (7-18); CALCIUM 9.1 mg/dL (8.5-10.1); CREATININE 0.5 mg/dL (0.55-1.3); MAGNESIUM 2.1 mg/dL (1.8-2.4); POTASSIUM 3.8 mmol/L (3.5-5.1); TOT PROT 6.2 g/dl (6.4-8.2); URIC ACID 2.9 mg/dL (2.6-7.2)
[2019-05-27] MEDS ORDERED: RITUXIMAB IVPB ONE (10:30)
[2019-05-27] MEDS ORDERED: SODIUM CHLORIDE IVPB ONE ×2 (10:30→12:30)
[2019-05-27] MEDS ORDERED: amLODIPine BESYLATE 5 MG TABLET (FP) PO PRN (11:29)
[2019-05-27] MEDS ORDERED: CYCLOPHOSPHAMIDE IVPB ONE (12:30)
[2019-05-27] MEDS ORDERED: DOXORUBICIN HCL IV ONE (13:30)
[2019-05-27] MEDS ORDERED: SODIUM CHLORIDE IV ONE (13:30)
[2019-05-27] MEDS ORDERED: vinCRIStine SULFATE 2 MG in SODIUM CHLORIDE 25 ML IVPB ONE (14:00)
[2019-05-27 18:26] VITALS: BP 137/82; PULSE 67; TEMP 98.7
[2019-05-30 16:07] LABS: BETA-2-MICROGLOBULIN 1.9 mg/L (0.6-2.4)
== END 2019-05-27 18:26 | disposition home or self-care (01) ==
LOC: JONCCHEMO 07:13 → J7W 11:19 → JONCCHEMO 18:26
PROVIDERS: ATTEND Internal Medicine Hematology & Oncology
DX: Z51.11 Encounter for antineoplastic chemotherapy (principal); C82.89 Other types of follicular lymphoma, extranodal and solid organ sites
CPT/HCPCS: 36415; 80053; 82232; 82784; 83615; 83735; 84550; 85025; 86705; 87340; 87517; 96367; 96375; 96411; 96413; 96415; 96417; J1453; J2469; J7030; J9070; J9312; J9370

== ENCOUNTER 2019-05-28 07:03 | Day surgery (SDC) | payer BC ==
[2019-05-28] MEDS ORDERED: PEGFILGRASTIM-CBQV (UDENYCA) 6 MG/0.6 ML SYRINGE SQ ONE (10:00)
[2019-05-28] MEDS ORDERED: PEGFILGRASTIM (NEULASTA) 6 MG/0.6 ML DISP.SYRIN SQ ONE (10:00)
[2019-05-28] MEDS ORDERED: MAGNESIUM SULF 50% (8.12 MEQ/2 ML-1 GM VIAL) IVPB ONE (10:45)
[2019-05-28] MEDS ORDERED: D5-1/2NS+20 MEQ KCL - 20 MEQ/1,000 ML INFUS.BAG IV ONE (10:45)
[2019-05-28] MEDS ORDERED: DEXAMETHASONE SOD PHOSPHATE 10 MG/1 ML VIAL ONE (10:50)
[2019-05-28] MEDS ORDERED: ONDANSETRON 4 MG/2 ML VIAL ONE (10:51)
[2019-05-28] MEDS ORDERED: SODIUM CHLORIDE 100 ML IVPB ONE (10:51)
[2019-05-28] MEDS ORDERED: DEXAMETHASONE INJECTION 10 MG, ONDANSETRON INJECTION 8 MG in SODIUM CHLORIDE 100 ML IVPB ONE (11:00)
[2019-05-28 12:42] VITALS: BP 158/78; PULSE 69; TEMP 97.7
[2019-05-28] MEDS ORDERED: PORTA CATH FLUSH 10 ML IVPUSH ONE (12:42)
== END 2019-05-28 12:43 | disposition home or self-care (01) ==
LOC: JONCCHEMO 07:03 → J7W 09:20 → JONCCHEMO 12:43
PROVIDERS: ATTEND Internal Medicine Hematology & Oncology
PROC: 3E043GC Introduction of Other Therapeutic Substance into Central Vein, Percutaneous Approach (ICD-10-PCS; principal; 2019-05-28)
PROC: 3E043GC Introduction of Other Therapeutic Substance into Central Vein, Percutaneous Approach (ICD-10-PCS; 2019-05-28)
DX: C82.89 Other types of follicular lymphoma, extranodal and solid organ sites (principal); Z76.89 Persons encountering health services in other specified circumstances
CPT/HCPCS: 96365; 96366; 96368; 96372; J1100; Q5111

== ENCOUNTER 2019-06-17 05:24 | Day surgery (SDC) | payer BC ==
[2019-06-17] MEDS ORDERED: FOSAPREPITANT DIMEGLUMINE 150 MG in SODIUM CHLORIDE 150 ML IVPB ONE (10:00)
[2019-06-17] MEDS ORDERED: DEXAMETHASONE SODIUM PHOSPHATE 10 MG in SODIUM CHLORIDE 50 ML IVPB ONE (10:00)
[2019-06-17] MEDS ORDERED: ACETAMINOPHEN 325 MG TABLET (FP) PO ONE (10:00)
[2019-06-17] MEDS ORDERED: PALONOSETRON HCL 0.25 MG/5 ML VIAL IVPUSH ONE (10:00)
[2019-06-17] MEDS ORDERED: diphenhydrAMINE HCL 25 MG CAPSULE (FP) PO ONE (10:00)
[2019-06-17] MEDS ORDERED: SODIUM CHLORIDE IVPB ONE ×2 (10:30→13:00)
[2019-06-17] MEDS ORDERED: RITUXIMAB IVPB ONE (10:30)
[2019-06-17 10:42] LABS: BASO % 0.8 % (0-2.0); HEMOGLOBIN 10.9 GM/dL (10.7-15.3); LYMPH % 11.4 % (8-40); MCH 31.6 pg (25.7-33.7); MEAN PLT VOLUME 9.6 fl (7.5-11.1); MONO % 10.7 % (3.8-10.2); NEUT % 76.1 % (42.8-82.8); PLATELET COUNT 253 K/MM3 (134-434); RBC 3.44 M/mm3 (3.60-5.2); RDW 16.2 % (11.6-15.6); WHITE BLOOD COUNT 4.1 K/mm3 (4.0-10.0)
[2019-06-17 11:12] LABS: ALBUMIN 3.6 g/dl (3.4-5.0); BILIRUBIN,TOTAL 0.2 mg/dL (0.2-1); BLOOD UREA NITROGEN 10.4 mg/dL (7-18); CALCIUM 9.1 mg/dL (8.5-10.1); CREATININE 0.5 mg/dL (0.55-1.3); POTASSIUM 4.3 mmol/L (3.5-5.1); TOT PROT 6.5 g/dl (6.4-8.2); URIC ACID 3.1 mg/dL (2.6-7.2)
[2019-06-17] MEDS ORDERED: CYCLOPHOSPHAMIDE IVPB ONE (13:00)
[2019-06-17] MEDS ORDERED: DOXORUBICIN HCL IV ONE (13:30)
[2019-06-17] MEDS ORDERED: SODIUM CHLORIDE IV ONE (13:30)
[2019-06-17] MEDS ORDERED: vinCRIStine SULFATE 2 MG in SODIUM CHLORIDE 25 ML IVPB ONE (14:00)
[2019-06-17 16:51] VITALS: TEMP 98.8
[2019-06-17] MEDS ORDERED: PORTA CATH FLUSH 10 ML IVPUSH ONE (16:51)
[2019-06-17 17:30] VITALS: BP 119/65; PULSE 74
== END 2019-06-17 17:30 | disposition home or self-care (01) ==
LOC: JONCCHEMO 05:24 → J7W 11:00 → JONCCHEMO 17:30
PROVIDERS: ATTEND Internal Medicine Hematology & Oncology
DX: Z51.11 Encounter for antineoplastic chemotherapy (principal); C82.89 Other types of follicular lymphoma, extranodal and solid organ sites
CPT/HCPCS: 36415; 80053; 83615; 83735; 84550; 85025; 96413; 96415; 96417; J1453; J2469; J7030; J9070; J9312; J9370

== ENCOUNTER 2019-06-18 05:57 | Day surgery (SDC) | payer BC ==
[2019-06-18] MEDS ORDERED: PEGFILGRASTIM-CBQV (UDENYCA) 6 MG/0.6 ML SYRINGE SQ ONE (10:00)
[2019-06-18] MEDS ORDERED: MAGNESIUM SULF 50% (8.12 MEQ/2 ML-1 GM VIAL) ONE (10:52)
[2019-06-18] MEDS ORDERED: SODIUM CHLORIDE 0.9%/KCL 20 MEQ/1,000 ML INFUS.BAG IV SCH (11:15)
[2019-06-18] MEDS ORDERED: DEXAMETHASONE INJECTION 8 MG, ONDANSETRON INJECTION 8 MG in SODIUM CHLORIDE 100 ML IVPB ONE (11:15)
[2019-06-18] MEDS ORDERED: MAGNESIUM SULF 50% (8.12 MEQ/2 ML-1 GM VIAL) IVPB ONE (11:15)
[2019-06-18 13:11] VITALS: BP 135/69; PULSE 69; TEMP 98.4
[2019-06-18] MEDS ORDERED: PORTA CATH FLUSH 10 ML IVPUSH ONE (13:11)
== END 2019-06-18 13:16 | disposition home or self-care (01) ==
LOC: JONCCHEMO 05:57 → J7W 10:45 → JONCCHEMO 13:16
PROVIDERS: ATTEND Internal Medicine Hematology & Oncology
PROC: 3E043GC Introduction of Other Therapeutic Substance into Central Vein, Percutaneous Approach (ICD-10-PCS; principal; 2019-06-18)
PROC: 3E0437Z Introduction of Electrolytic and Water Balance Substance into Central Vein, Percutaneous Approach (ICD-10-PCS; 2019-06-18)
PROC: 3E013GC Introduction of Other Therapeutic Substance into Subcutaneous Tissue, Percutaneous Approach (ICD-10-PCS; 2019-06-18)
DX: C82.89 Other types of follicular lymphoma, extranodal and solid organ sites (principal); Z76.89 Persons encountering health services in other specified circumstances
CPT/HCPCS: 96365; 96366; 96368; 96372; Q5111

== ENCOUNTER 2019-07-09 05:52 | Day surgery (SDC) | payer BC ==
[2019-07-09 09:17] LABS: BASO % 0.6 % (0-2.0); EOS % 0.9 % (0-4.5); HEMATOCRIT 30.8 % (32.4-45.2); HEMOGLOBIN 10.4 GM/dL (10.7-15.3); LYMPH % 10.5 % (8-40); MCH 31.8 pg (25.7-33.7); MCHC 33.8 g/dl (32.0-36.0); MEAN CELL VOLUME 93.9 fl (80-96); MEAN PLT VOLUME 8.7 fl (7.5-11.1); MONO % 10.1 % (3.8-10.2); NEUT % 77.9 % (42.8-82.8); PLATELET COUNT 257 K/MM3 (134-434); RBC 3.28 M/mm3 (3.60-5.2); WHITE BLOOD COUNT 3.9 K/mm3 (4.0-10.0)
[2019-07-09] MEDS ORDERED: FOSAPREPITANT DIMEGLUMINE 150 MG in SODIUM CHLORIDE 145 ML IVPB ONE (09:30)
[2019-07-09] MEDS ORDERED: ACETAMINOPHEN 325 MG TABLET (FP) PO ONE (09:30)
[2019-07-09] MEDS ORDERED: PALONOSETRON HCL 0.25 MG/5 ML VIAL IVPUSH ONE (09:30)
[2019-07-09] MEDS ORDERED: DEXAMETHASONE SODIUM PHOSPHATE 10 MG in SODIUM CHLORIDE 50 ML IVPB ONE (09:30)
[2019-07-09] MEDS ORDERED: diphenhydrAMINE HCL 25 MG CAPSULE (FP) PO ONE (09:30)
[2019-07-09 09:51] LABS: ALBUMIN 3.6 g/dl (3.4-5.0); BILIRUBIN,TOTAL 0.3 mg/dL (0.2-1); BLOOD UREA NITROGEN 10.9 mg/dL (7-18); CALCIUM 8.7 mg/dL (8.5-10.1); CREATININE 0.5 mg/dL (0.55-1.3); MAGNESIUM 2.4 mg/dL (1.8-2.4); POTASSIUM 3.7 mmol/L (3.5-5.1); TOT PROT 6.2 g/dl (6.4-8.2); URIC ACID 3.1 mg/dL (2.6-7.2)
[2019-07-09] MEDS ORDERED: SODIUM CHLORIDE IVPB ONE ×2 (10:00→13:00)
[2019-07-09] MEDS ORDERED: RITUXIMAB IVPB ONE (10:00)
[2019-07-09] MEDS ORDERED: CYCLOPHOSPHAMIDE IVPB ONE (13:00)
[2019-07-09] MEDS ORDERED: DOXORUBICIN HCL IV ONE (13:30)
[2019-07-09] MEDS ORDERED: SODIUM CHLORIDE IV ONE (13:30)
[2019-07-09] MEDS ORDERED: vinCRIStine SULFATE 2 MG in SODIUM CHLORIDE 25 ML IVPB ONE (14:00)
[2019-07-09 17:39] VITALS: BP 132/79; PULSE 76; TEMP 97.7
[2019-07-09] MEDS ORDERED: PORTA CATH FLUSH 10 ML IVPUSH ONE (17:39)
[2019-07-09] MEDS ORDERED: PORTA CATH FLUSH 10 ML IVPUSH PRN (17:39)
== END 2019-07-09 17:47 | disposition home or self-care (01) ==
LOC: JONCCHEMO 05:52 → J7W 11:06 → JONCCHEMO 17:47
PROVIDERS: ATTEND Internal Medicine Hematology & Oncology
DX: Z51.11 Encounter for antineoplastic chemotherapy (principal); C82.89 Other types of follicular lymphoma, extranodal and solid organ sites
CPT/HCPCS: 36415; 80053; 82232; 82784; 83615; 83735; 84550; 85025; 87517; 96367; 96375; 96413; 96415; 96417; J1453; J2469; J7030; J9070; J9312; J9370

== ENCOUNTER 2019-07-10 05:40 | Day surgery (SDC) | payer BC ==
[2019-07-10] MEDS ORDERED: DEXAMETHASONE SODIUM PHOSPHATE 4 MG, ONDANSETRON INJECTION 8 MG in SODIUM CHLORIDE 100 ML IVPB ONE (10:00)
[2019-07-10] MEDS ORDERED: MAGNESIUM 1GM/D5W - 1 GM/100 ML IVPB IVPB ONE (10:00)
[2019-07-10] MEDS ORDERED: PEGFILGRASTIM-CBQV (UDENYCA) 6 MG/0.6 ML SYRINGE SQ ONE (10:00)
[2019-07-10] MEDS ORDERED: D5-1/2NS+20 MEQ KCL - 20 MEQ/1,000 ML INFUS.BAG IV ONE (10:00)
[2019-07-10 14:00] VITALS: TEMP 98.2
[2019-07-10 14:01] VITALS: BP 145/81; PULSE 62
== END 2019-07-10 14:02 | disposition home or self-care (01) ==
LOC: JONCCHEMO 05:40 → J7W 13:38 → JONCCHEMO 14:02
PROVIDERS: ATTEND Internal Medicine Hematology & Oncology
PROC: 3E013GC Introduction of Other Therapeutic Substance into Subcutaneous Tissue, Percutaneous Approach (ICD-10-PCS; principal; 2019-07-10)
PROC: 3E043GC Introduction of Other Therapeutic Substance into Central Vein, Percutaneous Approach (ICD-10-PCS; 2019-07-10)
PROC: 3E043GC Introduction of Other Therapeutic Substance into Central Vein, Percutaneous Approach (ICD-10-PCS; 2019-07-10)
DX: C82.89 Other types of follicular lymphoma, extranodal and solid organ sites (principal); Z76.89 Persons encountering health services in other specified circumstances
CPT/HCPCS: 96361; 96365; 96372; J2405; Q5111

== ENCOUNTER 2019-07-30 05:30 | Day surgery (SDC) | payer BC ==
[2019-07-30 09:19] LABS: BASO % 0.6 % (0-2.0); EOS % 0.2 % (0-4.5); HEMATOCRIT 32.6 % (32.4-45.2); HEMOGLOBIN 10.8 GM/dL (10.7-15.3); LYMPH % 11.6 % (8-40); MCH 32.1 pg (25.7-33.7); MEAN CELL VOLUME 97.1 fl (80-96); MEAN PLT VOLUME 9.1 fl (7.5-11.1); MONO % 8.6 % (3.8-10.2); PLATELET COUNT 234 K/MM3 (134-434); RBC 3.36 M/mm3 (3.60-5.2); RDW 14.9 % (11.6-15.6); WHITE BLOOD COUNT 5.2 K/mm3 (4.0-10.0)
[2019-07-30 09:47] LABS: ALBUMIN 3.4 g/dl (3.4-5.0); BILIRUBIN,TOTAL 0.2 mg/dL (0.2-1); BLOOD UREA NITROGEN 13.9 mg/dL (7-18); CREATININE 0.5 mg/dL (0.55-1.3); MAGNESIUM 2.5 mg/dL (1.8-2.4); POTASSIUM 3.9 mmol/L (3.5-5.1); TOT PROT 6.1 g/dl (6.4-8.2); URIC ACID 2.3 mg/dL (2.6-7.2)
[2019-07-30] MEDS ORDERED: FOSAPREPITANT DIMEGLUMINE 150 MG in SODIUM CHLORIDE 150 ML IVPB ONE (10:00)
[2019-07-30] MEDS ORDERED: ACETAMINOPHEN 325 MG TABLET (FP) PO ONE (10:00)
[2019-07-30] MEDS ORDERED: DEXAMETHASONE SODIUM PHOSPHATE 10 MG in SODIUM CHLORIDE 50 ML IVPB ONE (10:00)
[2019-07-30] MEDS ORDERED: diphenhydrAMINE HCL 25 MG CAPSULE (FP) PO ONE (10:00)
[2019-07-30] MEDS ORDERED: PALONOSETRON HCL 0.25 MG/5 ML VIAL IVPUSH ONE (10:00)
[2019-07-30] MEDS ORDERED: RITUXIMAB IVPB ONE (10:30)
[2019-07-30] MEDS ORDERED: SODIUM CHLORIDE IVPB ONE ×2 (10:30→12:00)
[2019-07-30] MEDS ORDERED: PEGFILGRASTIM (NEULASTA) 6 MG/0.6 ML DISP.SYRIN SQ ONE (11:15)
[2019-07-30] MEDS ORDERED: LORATADINE 10 MG TABLET PO ONE (11:15)
[2019-07-30] MEDS ORDERED: CYCLOPHOSPHAMIDE IVPB ONE (12:00)
[2019-07-30] MEDS ORDERED: SODIUM CHLORIDE IV ONE (12:30)
[2019-07-30] MEDS ORDERED: DOXORUBICIN HCL IV ONE (12:30)
[2019-07-30] MEDS ORDERED: vinCRIStine SULFATE 2 MG in SODIUM CHLORIDE 50 ML IVPB ONE (12:40)
[2019-07-30 17:29] VITALS: TEMP 98.7
[2019-07-30] MEDS ORDERED: PORTA CATH FLUSH 10 ML IVPUSH ONE (17:44)
[2019-07-30 17:45] VITALS: BP 129/69; PULSE 67
[2019-07-31] MEDS ORDERED: MAGNESIUM SULF 50% (8.12 MEQ/2 ML-1 GM VIAL) IVPB SCH (10:00)
[2019-07-31] MEDS ORDERED: LORATADINE 10 MG TABLET PO ONE (10:00)
[2019-07-31] MEDS ORDERED: D5-1/2NS+20 MEQ KCL - 20 MEQ/1,000 ML INFUS.BAG IV SCH (10:00)
[2019-07-31] MEDS ORDERED: DEXAMETHASONE INJECTION 10 MG, ONDANSETRON INJECTION 8 MG in SODIUM CHLORIDE 100 ML IVPUSH ONE (10:00)
[2019-07-31] MEDS ORDERED: PEGFILGRASTIM (NEULASTA) 6 MG/0.6 ML DISP.SYRIN SQ ONE (10:00)
== END 2019-07-30 17:15 | disposition home or self-care (01) ==
LOC: JONCCHEMO 05:30 → J7W 10:45 → JONCCHEMO 17:15
PROVIDERS: ATTEND Internal Medicine Hematology & Oncology
DX: Z51.11 Encounter for antineoplastic chemotherapy (principal); C82.89 Other types of follicular lymphoma, extranodal and solid organ sites
CPT/HCPCS: 36415; 80053; 82232; 82784; 83615; 83735; 84550; 85025; 96367; 96375; 96411; 96413; 96415; 96417; J1453; J2469; J7030; J9070; J9312; J9370

== ENCOUNTER 2019-07-31 05:36 | Day surgery (SDC) | payer BC ==
[2019-07-31] MEDS ORDERED: PEGFILGRASTIM-CBQV (UDENYCA) 6 MG/0.6 ML SYRINGE SQ ONE (10:00)
[2019-07-31] MEDS ORDERED: LORATADINE 10 MG TABLET PO ONE (11:45)
[2019-07-31] MEDS ORDERED: D5-1/2NS+20 MEQ KCL - 20 MEQ/1,000 ML INFUS.BAG IV ONE (11:45)
[2019-07-31] MEDS ORDERED: MAGNESIUM SULF 50% (8.12 MEQ/2 ML-1 GM VIAL) IVPB ONE (11:45)
[2019-07-31] MEDS ORDERED: DEXAMETHASONE SODIUM PHOSPHATE 10 MG, ONDANSETRON INJECTION 8 MG in SODIUM CHLORIDE 100 ML IVPB ONE (11:45)
[2019-07-31 15:50] VITALS: BP 125/68; PULSE 72; TEMP 98.6
== END 2019-07-31 14:30 | disposition home or self-care (01) ==
LOC: JONCCHEMO 05:36 → J7W 11:10 → JONCCHEMO 14:30
PROVIDERS: ATTEND Internal Medicine Hematology & Oncology
PROC: 3E043GC Introduction of Other Therapeutic Substance into Central Vein, Percutaneous Approach (ICD-10-PCS; principal; 2019-07-31)
PROC: 3E0437Z Introduction of Electrolytic and Water Balance Substance into Central Vein, Percutaneous Approach (ICD-10-PCS; 2019-07-31)
PROC: 3E013GC Introduction of Other Therapeutic Substance into Subcutaneous Tissue, Percutaneous Approach (ICD-10-PCS; 2019-07-31)
DX: C82.89 Other types of follicular lymphoma, extranodal and solid organ sites (principal); Z76.89 Persons encountering health services in other specified circumstances
CPT/HCPCS: 96365; 96366; 96368; 96372; Q5111

== ENCOUNTER 2020-04-15 09:38 | Day surgery (SDC) | payer BC, OTHER ==
[2020-04-15] MEDS ORDERED: ZOLEDRONIC ACID/MAN/WATER 5 MG/100 ML INFUS..BTL IVPB ONE (10:00)
[2020-04-15 12:35] LABS: BASO % 0.6 % (0-2.0); EOS % 3.7 % (0-4.5); HEMATOCRIT 36.8 % (32.4-45.2); HEMOGLOBIN 12.3 GM/dL (10.7-15.3); LYMPH % 24.1 % (8-40); MCH 30.6 pg (25.7-33.7); MCHC 33.5 g/dl (32.0-36.0); MEAN CELL VOLUME 91.2 fl (80-96); MEAN PLT VOLUME 10.2 fl (7.5-11.1); MONO % 7.5 % (3.8-10.2); NEUT % 64.1 % (42.8-82.8); PLATELET COUNT 168 K/MM3 (134-434); RBC 4.03 M/mm3 (3.60-5.2); RDW 12.7 % (11.6-15.6); WHITE BLOOD COUNT 3.2 K/mm3 (4.0-10.0)
[2020-04-15 12:43] LABS: INR 0.97 (0.83-1.09); PROTHROMBIN TIME (PATIENT) 11.9 SEC (9.7-13.0)
[2020-04-15 12:46] LABS: ACTIVATED PTT 28.2 SECONDS (25.2-36.5)
[2020-04-15 12:56] LABS: POTASSIUM 4.2 mmol/L (3.5-5.1)
[2020-04-15 12:58] LABS: CALCIUM 9.4 mg/dL (8.5-10.1)
[2020-04-15 13:01] LABS: BILIRUBIN,DIRECT 0.1 mg/dL (0.0-0.2)
[2020-04-15 13:02] LABS: CREATININE 0.6 mg/dL (0.55-1.3)
[2020-04-15 13:03] LABS: BILIRUBIN,TOTAL 0.4 mg/dL (0.2-1); TOT PROT 6.6 g/dl (6.4-8.2)
[2020-04-15 13:20] LABS: ERYTHROCYTE SEDIMENTATION RATE 4 mm/hr (0-30)
[2020-04-15 13:44] VITALS: BP 164/72; PULSE 66; TEMP 98.1
[2020-04-18 07:07] LABS: IGA IMMUNOGLOBULIN 65 mg/dL (87-352); IGG QN IMMUNOGLOBULIN 762 mg/dL (586-1602); IGM QN SERUM 31 mg/dL (26-217)
== END 2020-04-15 13:44 | disposition home or self-care (01) ==
LOC: JONCCHEMO 09:38
PROVIDERS: ATTEND Internal Medicine Hematology & Oncology
DX: M80.00XA Age-related osteoporosis with current pathological fracture, unspecified site, initial encounter for fracture (principal); C82.89 Other types of follicular lymphoma, extranodal and solid organ sites
CPT/HCPCS: 36415; 80048; 80076; 82232; 82784; 83615; 84439; 84443; 85025; 85610; 85651; 85730; 86376; 86800; 96365; J3489

== ENCOUNTER 2021-02-04 04:22 | Day surgery (SDC) | payer BC, OTHER ==
[2021-02-01 17:27] VITALS: BMI 25.1
[2021-02-04] MEDS ORDERED: BUPIVACAINE HCL/PF 0.5% (5MG/ML) 10 ML VIAL ONE (07:19)
[2021-02-04] MEDS ORDERED: LIDOCAINE HCL 1%, 10 MG/ML (20ML VIAL) ONE (07:19)
[2021-02-04] MEDS ORDERED: MIDAZOLAM HCL 2 MG/2 ML SINGLE DOSE VIAL ONE ×2 (08:46→09:14)
[2021-02-04] MEDS ORDERED: PROPOFOL 20 ML ONE ×2 (08:51)
[2021-02-04] MEDS ORDERED: ceFAZolin SODIUM 1 GM VIAL ONE (09:15)
[2021-02-04] MEDS ORDERED: BUPIVACAINE HCL/PF 0.5% (5MG/ML) 10 ML VIAL IJ ONE (09:20)
[2021-02-04] MEDS ORDERED: LIDOCAINE HCL 1%, 10 MG/ML (20ML VIAL) INF ONE (09:20)
[2021-02-04] MEDS ORDERED: DEXAMETHASONE SOD PHOSPHATE 4 MG/1 ML VIAL ONE (10:19)
[2021-02-04 11:04] VITALS: BP 135/73; PULSE 61; TEMP 97.9
[2021-02-04] MEDS ORDERED: ONDANSETRON 4 MG/2 ML VIAL IVPUSH PRN (12:33)
[2021-02-04] MEDS ORDERED: oxyCODONE HCL 5 MG TABLET PO PRN (12:33)
[2021-02-04] MEDS ORDERED: LACTATED RINGERS SOLUTION 1,000 ML IV SCH (12:45)
== END 2021-02-04 10:50 | disposition home or self-care (01) ==
LOC: JASU-SURG 04:22
PROVIDERS: ATTEND Surgery
PROC: 0JQ60ZZ Repair Chest Subcutaneous Tissue and Fascia, Open Approach (ICD-10-PCS; 2021-02-04)
PROC: 0HB5XZX Excision of Chest Skin, External Approach, Diagnostic (ICD-10-PCS; 2021-02-04)
PROC: 05HY33Z Insertion of Infusion Device into Upper Vein, Percutaneous Approach (ICD-10-PCS; principal; 2021-02-04 08:00)
DX: C82.90 Follicular lymphoma, unspecified, unspecified site (principal); L90.5 Scar conditions and fibrosis of skin

== ENCOUNTER 2021-04-19 08:17 | Day surgery (SDC) | payer BC ==
[2021-04-19] MEDS ORDERED: ZOLEDRONIC ACID/MAN/WATER 5 MG/100 ML INFUS..BTL IVPB ONE (10:00)
[2021-04-19 12:47] LABS: BASO % 0.7 % (0-2.0); EOS % 2.8 % (0-4.5); HEMATOCRIT 38.4 % (32.4-45.2); LYMPH % 28.8 % (8-40); MCH 31.1 pg (25.7-33.7); MCHC 33.8 g/dl (32.0-36.0); MEAN CELL VOLUME 92.1 fl (80-96); MEAN PLT VOLUME 9.6 fl (7.5-11.1); MONO % 8.2 % (3.8-10.2); NEUT % 59.5 % (42.8-82.8); PLATELET COUNT 216 10^3/uL (134-434); RBC 4.16 M/mm3 (3.60-5.2); WHITE BLOOD COUNT 3.3 K/mm3 (4.0-10.0)
[2021-04-19 13:08] LABS: CALCIUM 9.2 mg/dL (8.5-10.1); MAGNESIUM 2.4 mg/dL (1.8-2.4)
[2021-04-19 13:09] LABS: ALBUMIN 3.9 g/dl (3.4-5.0); BLOOD UREA NITROGEN 6.9 mg/dL (7-18)
[2021-04-19 13:11] LABS: BILIRUBIN,DIRECT 0.1 mg/dL (0.0-0.2); CREATININE 0.6 mg/dL (0.55-1.3); URIC ACID 3.2 mg/dL (2.6-7.2)
[2021-04-19 13:13] LABS: TOT PROT 6.7 g/dl (6.4-8.2)
[2021-04-19 13:14] LABS: BILIRUBIN,TOTAL 0.3 mg/dL (0.2-1)
[2021-04-19 13:30] LABS: ERYTHROCYTE SEDIMENTATION RATE 12 mm/hr (0-30)
[2021-04-19 14:57] VITALS: BP 137/77; TEMP 98.4
[2021-04-19 14:58] VITALS: PULSE 77
[2021-04-21 06:06] LABS: BETA-2-MICROGLOBULIN 1.5 mg/L (0.6-2.4)
== END 2021-04-19 14:15 | disposition home or self-care (01) ==
LOC: JONCCHEMO 08:17
PROVIDERS: ATTEND Internal Medicine Hematology & Oncology
PROC: 3E033GC Introduction of Other Therapeutic Substance into Peripheral Vein, Percutaneous Approach (ICD-10-PCS; principal; 2021-04-19)
DX: M81.8 Other osteoporosis without current pathological fracture (principal); C82.89 Other types of follicular lymphoma, extranodal and solid organ sites
CPT/HCPCS: 36415; 80048; 80076; 82232; 82784; 83615; 83735; 84550; 85025; 85651; 96365; J3489

== ENCOUNTER 2022-06-10 11:17 | Day surgery (SDC) | payer BC, OTHER ==
[~2022-06-10 11:17] MED LIST changes: -ACETAMINOPHEN 325 MG TABLET (FP) PO ONE; -CYCLOPHOSPHAMIDE IVPB ONE; -DEXAMETHASONE SODIUM PHOSPHATE 10 MG in SODIUM CHLORIDE 50 ML IVPB ONE; -DOXORUBICIN HCL IV ONE; -FOSAPREPITANT DIMEGLUMINE 150 MG in SODIUM CHLORIDE 150 ML IVPB ONE; -PALONOSETRON HCL 0.25 MG/5 ML VIAL IVPUSH ONE; -RITUXIMAB IVPB ONE; -SODIUM CHLORIDE IV ONE; -SODIUM CHLORIDE IVPB ONE; +ZOLEDRONIC ACID/MAN/WATER 5 MG/100 ML INFUS..BTL IVPB ONE; -diphenhydrAMINE HCL 25 MG CAPSULE (FP) PO ONE; -vinCRIStine SULFATE 2 MG in SODIUM CHLORIDE 25 ML IVPB ONE
[2022-06-10 12:23] LABS: CALCIUM 8.8 mg/dL (8.5-10.1)
[2022-06-10 12:24] LABS: BLOOD UREA NITROGEN 10.5 mg/dL (7-18)
[2022-06-10 12:27] LABS: CREATININE 0.6 mg/dL (0.55-1.3)
[2022-06-10 13:37] VITALS: TEMP 98.1
[2022-06-10 13:54] VITALS: BP 136/78; PULSE 67; RESP 18
== END 2022-06-10 13:45 | disposition home or self-care (01) ==
LOC: JONCCHEMO 11:17
PROVIDERS: ATTEND Internal Medicine Hematology & Oncology
PROC: 3E033GC Introduction of Other Therapeutic Substance into Peripheral Vein, Percutaneous Approach (ICD-10-PCS; principal; 2022-06-10)
DX: M81.0 Age-related osteoporosis without current pathological fracture (principal)
CPT/HCPCS: 36415; 80048; 96365; J3489

== ENCOUNTER 2023-06-09 11:24 | Day surgery (SDC) | payer BC, OTHER ==
[2023-06-09 16:08] VITALS: BP 143/76; PULSE 56; RESP 20; TEMP 97.9
== END 2023-06-09 12:15 | disposition home or self-care (01) ==
LOC: JONCNONCHE 11:24 → J7W 11:25 → JONCNONCHE 12:15
PROVIDERS: ATTEND Internal Medicine Hematology & Oncology
PROC: 3E033GC Introduction of Other Therapeutic Substance into Peripheral Vein, Percutaneous Approach (ICD-10-PCS; principal; 2023-06-09)
DX: M81.0 Age-related osteoporosis without current pathological fracture (principal)
CPT/HCPCS: 96365; J3489